=== PATIENT | male | born 1955 | race Caucasian/White ===

== ENCOUNTER 2023-06-05 13:40 | Emergency (ER) | payer BC ==
[~2023-06-05] VITALS: Ht 182.9 cm; Wt 82.0 kg
[2023-06-05 13:42] VITALS: O2SAT 99
[2023-06-05] MEDS ORDERED: ONDANSETRON HCL 4MG/2ML INJ IV STA ×2 (14:01→21:08)
[2023-06-05] MEDS ORDERED: MORPHINE SULFATE 4 MG/ML CPJ (NOT FOR IM USE) IV STA ×2 (14:01→21:08)
[2023-06-05] MEDS ORDERED: SODIUM CHLORIDE 0.9% 1,000 ML IV ONE (14:15)
[2023-06-05 15:18] LABS: EOSINOPHILS % 5.6 % (0.0-5.0); HEMATOCRIT. 39.4 % (42.0-52.0); LYMPHOCYTES % 19.6 % (20.0-50.0); MEAN CORPUSCULAR HEMOGLOBIN 30.4 pg (28.0-32.0); MEAN CORPUSCULAR VOLUME 92.1 fL (80.0-94.0); MEAN PLATELET VOLUME 8.6 fl (7.4-10.4); MONOCYTES % 10.6 % (2.0-8.0); NEUTROPHILS % 63.2 % (40.0-76.0); PLATELET 194 x1000/uL (130-400); RED BLOOD CELL COUNT 4.28 mill/uL (4.7-6.1); RED CELL DISTRIBUTION WIDTH 14.2 % (11.6-14.6); WHITE BLOOD COUNT 4.2 x1000/uL (4.5-11.0)
[2023-06-05 15:22] LABS: PARTIAL THROMBOPLASTIN TIME 26.4 sec (23.4-31.0); PROTHROMBIN TIME 10.3 sec (9.6-11.0)
[2023-06-05 16:07] LABS: CHLORIDE 99 mEq/L (98-107); INDEX HEMOLYSI 1 (1-3); INDEX ICTERIC 1 (1-4); INDEX LIPEMIC 1 (1-3); POTASSIUM 3.5 mEq/L (3.5-5.1); SODIUM 134 mEq/L (136-145)
[2023-06-05 16:33] LABS: ALANINE AMINOTRANSFERASE 80 IU/L (13-61); ALBUMIN 3.6 g/dL (3.4-5.0); ASPARTATE AMINOTRANSFERASE 99 IU/L (15-37); BILIRUBIN TOTAL 0.6 mg/dL (0.1-1.0); CALCIUM 8.4 mg/dL (8.5-10.1); CARBON DIOXIDE 24 mEq/L (21-32); GLUCOSE 111 mg/dL (70-105); NT PRO B-TYPE NATRIURETIC PEP 783 pg/mL (5-125); PROTEIN TOTAL 6.6 g/dL (6.0-8.3); TROPONIN I HIGH SENSITIVITY 13 ng/L (<78); UREA NITROGEN BLOOD 10 mg/dL (7-21)
[2023-06-05 22:40] VITALS: BP 189/90; PULSE 70; RESP 16; TEMP 98.1
[2023-06-05] MEDS ORDERED: LABETALOL 5MG/ML SYR 20 MG/4 ML SYRINGE IV NR (22:45)
[2023-06-05] MEDS ORDERED: LABETALOL HCL VIAL 20 MG/4 ML VIAL IV ONE (22:45)
== END 2023-06-05 23:00 | disposition short-term general hospital (02) ==
LOC: ER 14:57 → CANBEDREQ 18:09 → ER 23:00
DX: K56.7 Ileus, unspecified (principal)
CPT/HCPCS: 99285; 74176; 96374; 71045; 96375; 80053; 83880; 83690; 85025; 85610; 85730; 86850; 86900; 86901; 84484; 36415; 93005; 96376; J3490; J2405; J2270; J7030; C1893